=== PATIENT | female | born 1965 ===

== ENCOUNTER 2018-05-18 00:05 | Emergency (ER) | payer SELFPAY ==
[~2018-05-18] VITALS: Ht 167.6 cm; Wt 67.3 kg
[2018-05-18 00:12] VITALS: Ht 167.6 cm; Wt 67.3 kg
[2018-05-18 01:04] VITALS: BP 135/72
== END 2018-05-18 01:04 | disposition home or self-care (01) ==
LOC: D.ER 00:05
DX: T43.695A Adverse effect of other psychostimulants, initial encounter (principal); Y92.019 Unspecified place in single-family (private) house as the place of occurrence of the external cause; R00.0 Tachycardia, unspecified; R19.7 Diarrhea, unspecified